=== PATIENT | male | born 1955 | race African-American/Black ===

== ENCOUNTER 2017-09-17 11:00 | Emergency (ER) | payer OTHER ==
[~2017-09-17] VITALS: Ht 175.3 cm; Wt 87.0 kg
[2017-09-17] MEDS ORDERED: KETOROLAC 60MG/2ML VIAL IM ONE (12:00)
[2017-09-17] MEDS ORDERED: MORPHINE SULFATE 10 MG/ML CPJ IM ONE (12:00)
[2017-09-17] MEDS ORDERED: HYDROCODONE/ACETAMINOPHEN 5/325MG TABLET PO ONE (12:30)
[2017-09-17] MEDS ORDERED: IBUPROFEN 800MG TABLET PO ONE (12:30)
[2017-09-17 14:53] VITALS: BP 153/102
== END 2017-09-17 14:54 | disposition home or self-care (01) ==
LOC: ER 11:27
DX: S90.31XA Contusion of right foot, initial encounter (principal); I10 Essential (primary) hypertension; Z86.73 Personal history of transient ischemic attack (TIA), and cerebral infarction without residual deficits; W20.8XXA Other cause of strike by thrown, projected or falling object, initial encounter; Y93.89 Activity, other specified; Y92.89 Other specified places as the place of occurrence of the external cause; Y99.8 Other external cause status
CPT/HCPCS: 29515; 73630; 99284; J2270; J1885